=== PATIENT | female | born 1970 | race Caucasian/White ===

== ENCOUNTER 2021-01-07 17:58 | Outpatient (REF) | payer MEDICAID, SELFPAY ==
[2021-01-07 21:49] LABS: ALT 111 U/L (14-59); AST 61 U/L (15-37); Albumin 4.4 g/dL (3.4-5.0); Alkaline Phosphatase 90 U/L (46-116); Anion Gap 8.8 mmol/L (3-11); BUN 10 mg/dL (7-18); Bilirubin, Total 0.4 mg/dL (0.2-1.0); CO2 28.2 mmol/L (21.0-32.0); CREATININE 0.8 mg/dL (0.55-1.02); Calcium 9.3 mg/dL (8.5-10.1); Calculated LDL 111 mg/dL (<100); Chloride 102 mmol/L (98-107); Cholesterol 242 mg/dL (<200); Glucose 85 mg/dL (74-106); HDL Cholesterol 121 mg/dL (40-60); Sodium 139 mmol/L (136-145); Total Protein 7.8 g/dL (6.4-8.2); Triglyceride 53 mg/dL (<150)
[2021-01-09 09:54] LABS: HIV-1/2 Ag & Ab Screen Negative (Negative)
[2021-01-09 10:11] LABS: Hepatitis C Ab w Rflx HCV PCR Negative (Negative)
== END 2021-01-07 17:59 | disposition home or self-care (01) ==
LOC: NCHCN 17:58
PROVIDERS: PCP Family Medicine; Visit Provider Nurse Practitioner Family
DX: I10 Essential (primary) hypertension (principal); F17.209 Nicotine dependence, unspecified, with unspecified nicotine-induced disorders; K58.9 Irritable bowel syndrome, unspecified; F41.8 Other specified anxiety disorders; Z11.59 Encounter for screening for other viral diseases; F10.10 Alcohol abuse, uncomplicated; Z11.4 Encounter for screening for human immunodeficiency virus [HIV]
CPT/HCPCS: 80053; 80061; 86803; 87389

== ENCOUNTER 2022-05-05 20:15 | Outpatient (REF) | payer OTHER, SELFPAY ==
[2022-05-05 16:05] LABS: ALT 141 U/L (14-59); AST 77 U/L (15-37); Albumin 4.3 g/dL (3.4-5.0); Alkaline Phosphatase 102 U/L (46-116); Anion Gap 9.1 mmol/L (3-11); BUN 9 mg/dL (7-18); Bilirubin, Total 0.6 mg/dL (0.2-1.0); CO2 29.9 mmol/L (21.0-32.0); CREATININE 0.7 mg/dL (0.55-1.02); Calcium 9.4 mg/dL (8.5-10.1); Chloride 99 mmol/L (98-107); Glucose 100 mg/dL (74-106); Potassium 5.4 mmol/L (3.5-5.1); Sodium 138 mmol/L (136-145)
== END 2022-05-05 20:16 | disposition home or self-care (01) ==
LOC: NCHCN 20:15
PROVIDERS: PCP Family Medicine; Visit Provider Nurse Practitioner Family
DX: K76.0 Fatty (change of) liver, not elsewhere classified (principal); R94.5 Abnormal results of liver function studies; R30.0 Dysuria
CPT/HCPCS: 80053; 87077; 87086; 87186

== ENCOUNTER 2023-08-03 15:23 | Outpatient (REF) | payer MEDICAID, SELFPAY ==
[2023-08-03 21:11] LABS: ALT 56 U/L (14-59); AST 36 U/L (15-37); Albumin 3.7 g/dL (3.4-5.0); Alkaline Phosphatase 104 U/L (46-116); Anion Gap 8.7 mmol/L (3-11); BUN 12 mg/dL (7-18); Bilirubin, Total 0.2 mg/dL (0.2-1.0); CO2 28.3 mmol/L (21.0-32.0); CREATININE 1.1 mg/dL (0.55-1.02); Calcium 9.2 mg/dL (8.5-10.1); Calculated LDL 111 mg/dL (<100); Chloride 101 mmol/L (98-107); Cholesterol 246 mg/dL (<200); Estimated GFR 60.46 (mL/min/1.73m2); Glucose 136 mg/dL (74-106); HDL Cholesterol 124 mg/dL (40-60); Potassium 4.1 mmol/L (3.5-5.1); Sodium 138 mmol/L (136-145); Total Protein 7.3 g/dL (6.4-8.2); Triglyceride 57 mg/dL (<150)
== END 2023-08-03 15:24 | disposition home or self-care (01) ==
LOC: NCHCN 15:23
PROVIDERS: PCP Family Medicine; Visit Provider Nurse Practitioner Family
DX: I10 Essential (primary) hypertension (principal); K76.0 Fatty (change of) liver, not elsewhere classified
CPT/HCPCS: 80053; 80061

== ENCOUNTER 2024-05-30 15:54 | Outpatient (REF) | payer MEDICAID, SELFPAY ==
[2024-05-30 21:41] LABS: HCT 39.6 % (36.0-46.0); HGB 13.4 g/dL (11.2-15.7); MCH 29.9 pg (27.0-33.0); MCHC 33.8 % (32.0-36.0); MCV 88 fL (80-95); MPV 9.5 fL (8.0-11.0); Platelet Count 480 10^3/uL (130-400); RBC 4.48 10^6/uL (3.93-5.22); RDW 12.3 % (11.7-14.6); RDW-SD 39.3 fL; WBC 5.75 10^3/uL (4.4-10.8)
[2024-05-30 21:56] LABS: ALT 84 U/L (14-59); AST 46 U/L (15-37); Alkaline Phosphatase 105 U/L (46-116); BUN 9 mg/dL (7-18); Bilirubin, Total 0.33 mg/dL (0.2-1.0); CREATININE 0.7 mg/dL (0.55-1.02); Calcium 9.3 mg/dL (8.5-10.1); Calculated LDL 120 mg/dL (<100); Chloride 102 mmol/L (98-107); Cholesterol 252 mg/dL (<200); Estimated GFR 103.35 (mL/min/1.73m2); Glucose 100 mg/dL (74-106); HDL Cholesterol 119 mg/dL (40-60); Potassium 4.9 mmol/L (3.5-5.1); Sodium 139 mmol/L (136-145); Total Protein 7.4 g/dL (6.4-8.2); Triglyceride 65 mg/dL (<150)
[2024-05-30 22:45] LABS: Hemoglobin A1C 5.6 % (<5.7)
== END 2024-05-30 15:55 | disposition home or self-care (01) ==
LOC: NCHCN 15:54
PROVIDERS: PCP Family Medicine; Visit Provider Nurse Practitioner Family
DX: Z00.00 Encounter for general adult medical examination without abnormal findings (principal)
CPT/HCPCS: 80053; 80061; 85027; 83036

== ENCOUNTER 2024-07-31 15:21 | Outpatient (REF) | payer MEDICAID, SELFPAY ==
--- NOTE | 2024-07-31 13:30 | SKI_PTH ---
PATIENT: Annabella Perez LOC: [facility]#:[id number] AGE/SX: 54/F ROOM: RE07/31/[address]: April Costello : 1970 BED: DIS: 07/31/2024 SPEC #: [id number] RECD: 08/01/24 12:41 STATUS: OG REEmily #: [id number] ANDREW: 07/31/24 13:[address]: April Costello DEPT: Surgical Specimen RECD BY: Ankita Dailey ENTERED: 08/01/24 12:42 SP TYPE: TRANG WATSON DR: Jasper Sun Tissues: 1 - SKIN BIOPSY(SHAVE/PUNCH) Procedures: SKIN LEVEL 4 Comments: [id number]
== END 2024-07-31 15:22 | disposition home or self-care (01) ==
LOC: NCHCN 15:21
PROVIDERS: PCP Family Medicine; Visit Provider Nurse Practitioner Family
DX: L82.1 Other seborrheic keratosis (principal)
CPT/HCPCS: 88305